=== PATIENT | male | born 1975 | race Caucasian/White ===

== ENCOUNTER → 2017-12-18 | Outpatient (REF) | payer BC ==
[2017-12-18 18:16] LABS: INFLUENZA A AMPLIFICATION NEGATIVE (NEGATIVE); INFLUENZA B AMPLIFICATION NEGATIVE (NEGATIVE)
== END ==
LOC: M LAB REF 16:43
DX: J11.1 Influenza due to unidentified influenza virus with other respiratory manifestations (principal)
CPT/HCPCS: 87502

== ENCOUNTER → 2018-02-20 | Outpatient (REF) | payer BC ==
[2018-02-22 08:11] LABS: LDL DIRECT 183 mg/dL (0-99)
== END ==
LOC: M LAB REF 18:38
PROVIDERS: ATTEND Family Medicine
DX: E78.00 Pure hypercholesterolemia, unspecified (principal)

== ENCOUNTER → 2018-04-23 | Outpatient (REF) | payer BC ==
[2018-04-23 13:03] LABS: INFLUENZA A AMPLIFICATION POSITIVE (NEGATIVE); INFLUENZA B AMPLIFICATION NEGATIVE (NEGATIVE)
== END ==
LOC: M LAB REF 11:42
PROVIDERS: ATTEND Physician Assistant Medical
DX: J11.1 Influenza due to unidentified influenza virus with other respiratory manifestations (principal)

== ENCOUNTER → 2018-07-08 | Outpatient (REF) | payer BC ==
[2018-07-11 00:07] LABS: Lyme Disease IgG/IgM Antibodie <0.91 ISR (0.00-0.90); Lyme Disease IgM Ab Quantitati <0.80 index (0.00-0.79)
== END ==
LOC: M LAB REF 16:15
PROVIDERS: ATTEND Family Medicine
DX: Z11.59 Encounter for screening for other viral diseases (principal)

== ENCOUNTER 2019-08-29 12:54 | Emergency (ER) | payer BC ==
[~2019-08-29] VITALS: Ht 180.3 cm; Wt 109.1 kg
[2019-08-29] MEDS ORDERED: BOOSTRIX/ADACEL VACCINE (DIPHTH/PERTUSS/ACELL/TETANUS) 0.5ML SYR IM ONE (13:30)
[2019-08-29] MEDS ORDERED: MORPHINE 4 MG/ML 1ML VIAL/SYRINGE (J2270) IV ONE ×2 (13:45→15:30)
[2019-08-29] MEDS ORDERED: ONDANSETRON 4MG/2ML VIAL IV ONE (13:45)
[2019-08-29 14:03] LABS: BASO # 0.1 10^3/uL (0.0-0.2); BASO % 0.7 % (0.0-1.0); EOS # 0.1 10^3/uL (0.0-0.5); EOS % 0.8 % (0.0-3.0); HEMOGLOBIN 14.9 g/dl (13.5-17.5); LYMPH # 0.9 10^3/uL (1.5-5.0); LYMPH % 10.2 % (24.0-44.0); MEAN CORPUSCULAR HEMOGLOBIN 30.3 pg (27.0-33.0); MEAN CORPUSCULAR HGB CONC 33.9 g/dl (32.0-36.5); MEAN CORPUSCULAR VOLUME 89.6 fl (80.0-96.0); MONO # 0.5 10^3/uL (0.0-0.8); MONO % 6.3 % (0.0-5.0); NEUTROPHILS # 6.9 10^3/uL (1.5-8.5); NEUTROPHILS % 81.5 % (36.0-66.0); PLATELET COUNT, AUTOMATED 180 10^3/uL (150-450); RED BLOOD COUNT 4.91 10^6/uL (4.30-6.10); WHITE BLOOD COUNT 8.5 10^3/uL (4.0-10.0)
[2019-08-29] MEDS ORDERED: ceFAZolin SOD 2 GM in IV 1 EA IV ONE (14:15)
[2019-08-29] MEDS ORDERED: LIDOCAINE 1% MDV 20ML VIAL As Ordered ONE (15:10)
[2019-08-29] MEDS ORDERED: LIDOCAINE 1% MDV 50ML VIAL SC ONE (15:15)
[2019-08-29] MEDS ORDERED: KEFL500C17 PO (16:24)
[2019-08-29] MEDS ORDERED: NORC1TAB7 PO ×2 (16:24→16:28)
[2019-08-29] MEDS ORDERED: LEVA750T7 PO (16:24)
[2019-08-29 16:43] VITALS: BP 139/90
--- NOTE | 2019-08-30 09:53 | REP ---
REASON FOR EXAM: Trauma. There are no priors for comparison. There is an old healed distal tibial fracture. There is no acute fracture. There is air density in the lateral anterior soft tissues, consistent with a soft tissue wound. IMPRESSION: No acute fracture. Findings as described above. Electronically Signed by Aristides Bowie DO 08/31/2019 08:30 A
--- NOTE | 2019-08-30 14:52 | CR ---
DATE OF CONSULTATION: 08/29/2019 CHIEF COMPLAINT: Right leg laceration. HISTORY OF PRESENT ILLNESS: Liam Jiang is a 44-year-old male who was jumping off a rock into a levelock this morning when he sustained a laceration to his right leg. He had exposed muscle and was brought to the emergency department. Pain is primarily in the right leg. He denies numbness or tingling and is able to move his foot. No injuries elsewhere. PAST MEDICAL HISTORY: Hypercholesterolemia. PHYSICAL EXAMINATION: GENERAL: Well-appearing, alert and oriented, in no acute distress. PULMONARY: Regular nonlabored breathing. . CARDIOVASCULAR: Regular dorsalis pedis (DP) pulse in the right. MUSCULOSKELETAL: There is a laceration through the mid aspect of the leg essentially over the mid shaft tibia and tibialis anterior muscle. Fascia has been lacerated and there is exposed tibialis anterior muscle. There is no gross debris in the wound. He does have intact function of his tibialis anterior tendon and normal sensation to light touch of the superficial peroneal, deep peroneal, tibia distribution. The foot is warm and well-perfused. IMAGING: X-rays of the tibia show a history of a prior healed fracture to the distal tibia but no acute fractures. There is soft tissue injury evident on this film. IMPRESSION: Right leg laceration with injury to the fascia and exposed tibialis anterior tendon. PLAN: Informed consent was obtained in the emergency room (ER) and bedside irrigation and debridement was performed using two liters normal saline. I then used 20 mL of 1% lidocaine for local anesthesia. The area was carefully prepped and again further irrigation with another liter of normal saline was performed. I loosely approximated the fascia as there was a muscle herniation through the defect. I repaired this with 3-0 Monocryl. I then also used 3-0 Monocryl to loosely approximate the subcutaneous tissues and closed the skin with 3-0 nylon in a horizontal mattress fashion. I did take care not to too tightly close the wound so that it could drain given the traumatic nature of the injury. A sterile dressing was applied. The patient will be sent home on antibiotics both Keflex and Levaquin. He will call our office for followup for next week. He will check his wound on a daily basis. If he has any increased redness, drainage, pain, swelling or other concerning features, he knows to either come to the emergency room (ER) right away or call the on-call service. He will be given crutches as well. PATRICIA
== END 2019-08-29 17:00 | disposition home or self-care (01) ==
LOC: M ED 12:54
DX: S86.821A Laceration of other muscle(s) and tendon(s) at lower leg level, right leg, initial encounter (principal); W16.622A Jumping or diving into natural body of water striking bottom causing other injury, initial encounter; W26.8XXA Contact with other sharp object(s), not elsewhere classified, initial encounter; Y92.9 Unspecified place or not applicable; Y93.11 Activity, swimming; Y99.9 Unspecified external cause status
CPT/HCPCS: 27656; 73590; 80047; 85025; 90471; 90715; 96365; 96366; 96375; 96376; 99284; J0690; J2270; J2405

== ENCOUNTER → 2020-09-07 | Outpatient (CLI) | payer BC ==
[~2020-09-07] MED LIST: KEFL500C17 PO; LEVA750T7 PO; NORC1TAB7 PO
--- NOTE | 2020-09-07 11:25 | REP ---
INDICATION: PAIN. COMPARISON: None. TECHNIQUE: Real-time sonographic evaluation of scrotum and contents performed. FINDINGS: Testicles are normal in size and echotexture, right testicle measuring 4.6 x 2.3 x 2.9 cm and left testicle 4.0 x 1.9 x 2.7 cm. There is no evidence of testicular mass or torsion, blood flow is seen in each testicle with duplex Doppler evaluation. The epididymis is unremarkable bilaterally. Prominent venous structures are seen in the left hemiscrotum laterally measuring up to 4 mm in diameter compatible with a left-sided varicocele. IMPRESSION: No testicular mass or torsion. Left varicocele. <Electronically signed by Calvin Ashley > 09/07/20 1127
== END ==
LOC: M RAD 10:21
PROVIDERS: ATTEND Family Medicine
DX: N50.812 Left testicular pain (principal)

== ENCOUNTER 2020-11-03 18:11 | Outpatient (CLI) | payer BC ==
[~2020-11-03] VITALS: Ht 177.8 cm; Wt 102.1 kg
[~2020-11-03 18:11] MED LIST changes: +ALBUTEROL 90 MCG/ACT 8GM HFA INHALER INH PRN; +ALBUTEROL SULFATE 2.5 MG/0.5 ML INH NEB SOLN INH PRN; +EPINEPHrine INJ 1 MG/ML 1ML AMP IM PRN; +NS 1,000 ML IV SCH; +diphenhydrAMINE 50MG/ML VIAL (J1200) IV PRN; +methylPREDNISolone 125MG 2ML VIAL IV PRN
[2020-11-03 18:42] VITALS: BP 121/86
[2020-11-03] MEDS ORDERED: ACETAMINOPHEN TAB 650MG DOSE (2X325MG) PO PRN (18:45)
[2020-11-03] MEDS ORDERED: CASIRIVIMAB/IMDEVIMAB 1,200 MG in NS 250 ML IV ONE (19:00)
[2020-11-03 20:00] VITALS: BP 133/84
[2020-11-03 20:15] VITALS: BP 120/74
[2020-11-03 20:30] VITALS: BP 114/72
[2020-11-03 21:00] VITALS: BP 116/74
== END 2020-11-03 22:00 ==
LOC: M OPCLI4PR 18:11 → M 4MAIN 18:11 → M OPCLI4PR 22:00
PROVIDERS: ATTEND Family Medicine
DX: U07.1 COVID-19 (principal)

== ENCOUNTER → 2021-06-13 | Outpatient (CLI) | payer BC ==
[~2021-06-13] MED LIST changes: -ALBUTEROL 90 MCG/ACT 8GM HFA INHALER INH PRN; -ALBUTEROL SULFATE 2.5 MG/0.5 ML INH NEB SOLN INH PRN; -EPINEPHrine INJ 1 MG/ML 1ML AMP IM PRN; -NS 1,000 ML IV SCH; +THERTAB52 PO; -diphenhydrAMINE 50MG/ML VIAL (J1200) IV PRN; -methylPREDNISolone 125MG 2ML VIAL IV PRN
== END ==
LOC: M LABSMTC 09:49
PROVIDERS: ATTEND Anesthesiology
DX: Z01.812 Encounter for preprocedural laboratory examination (principal); Z20.822 Contact with and (suspected) exposure to COVID-19

== ENCOUNTER 2021-06-17 07:26 | Day surgery (SDC) | payer BC ==
[~2021-06-17] VITALS: Ht 180.3 cm; Wt 116.1 kg
[~2021-06-17 07:26] MED LIST changes: +NS 1,000 ML IV ONE
[2021-06-17 09:15] VITALS: BP 121/83
== END 2021-06-17 09:20 | disposition home or self-care (01) ==
LOC: M OPP 07:26
PROVIDERS: ATTEND Internal Medicine Gastroenterology
DX: Z12.11 Encounter for screening for malignant neoplasm of colon (principal); K57.30 Diverticulosis of large intestine without perforation or abscess without bleeding; K64.0 First degree hemorrhoids; F17.220 Nicotine dependence, chewing tobacco, uncomplicated

== ENCOUNTER → 2021-08-18 | Outpatient (CLI) | payer BC ==
[~2021-08-18] MED LIST changes: -NS 1,000 ML IV ONE
== END ==
LOC: M SLEEP 20:00
PROVIDERS: ATTEND Nurse Practitioner Family
DX: R06.83 Snoring (principal)

== ENCOUNTER → 2021-10-13 | Outpatient (CLI) | payer BC | LOC: M SLEEP 20:00 | PROVIDERS: ATTEND Nurse Practitioner Family | DX: G47.33 Obstructive sleep apnea (adult) (pediatric) (principal) ==

== ENCOUNTER → 2022-06-27 | Outpatient (CLI) | payer BC ==
[~2022-06-27] MED LIST changes: +ISOVUE-370 76% 100ML VIAL As Ordered ONE
== END ==
LOC: M RAD 07:31
PROVIDERS: ATTEND Family Medicine
DX: R91.1 Solitary pulmonary nodule (principal)
CPT/HCPCS: 71260; Q9967

== ENCOUNTER → 2022-10-13 | Outpatient (CLI) | payer BC ==
[~2022-10-13] MED LIST changes: -ISOVUE-370 76% 100ML VIAL As Ordered ONE
== END ==
LOC: M RAD 07:58
PROVIDERS: ATTEND Nurse Practitioner Family
DX: R91.8 Other nonspecific abnormal finding of lung field (principal)

== ENCOUNTER → 2023-11-20 | Outpatient (CLI) | payer BC | LOC: M PLAIMG 07:51 | PROVIDERS: ATTEND Nurse Practitioner Family | DX: R91.8 Other nonspecific abnormal finding of lung field (principal) ==